=== PATIENT | male | born 1985 | race Caucasian/White ===

== ENCOUNTER 2018-01-30 16:17 | Inpatient (IN) | payer OTHER ==
[~2018-01-30] VITALS: Ht 172.7 cm; Wt 71.2 kg
[2018-01-30 16:21] VITALS: Ht 172.7 cm; Wt 71.2 kg
[2018-01-30 16:54] LABS: BASOPHIL % 0.3 % (0-2); PLATELET COUNT 167 x10^3mcL (130-400)
[2018-01-30 17:01] LABS: RED CELL DISTRIBUTION WIDTH 14.7 % (11.5-14.5)
[2018-01-30 17:23] LABS: T3 TOTAL 1.02 ng/mL
[2018-01-30 17:26] LABS: BILIRUBIN TOTAL 0.86 mg/dL (0.20-1.00); CALCIUM 8.5 mg/dL (8.5-10.1); CARBON DIOXIDE 21.6 mmol/L (21-32); TOTAL PROTEIN, SERUM 6.7 g/dL (6.4-8.2)
[2018-01-30 17:28] LABS: ALBUMIN 2.6 g/dL (3.4-5.0)
[2018-01-30 17:29] LABS: CREATININE SERUM 5.1 mg/dL (0.7-1.3); POTASSIUM SERUM 2.8 mmol/L (3.5-5.1)
[2018-01-30 17:51] LABS: FREE T4 1.47 ng/dL (0.76-1.46); T4(THYROXINE) 7.8 ug/dL (4.7-13.3)
[2018-01-30 17:57] LABS: AMPHETAMINE QUAL UR NONE DETECTED (See below)
[2018-01-30 20:27] VITALS: BP 192/132
[2018-01-30 22:42] VITALS: BP 192/132
[2018-01-31] VITALS (10 sets, daily range): BP systolic 125–167; BP diastolic 88–116
[2018-01-31 00:30] LABS: microscopic required? YES; urine erythrocyte 1+ (NEGATIVE)
[2018-01-31 06:58] LABS: BASOPHIL % 0.2 % (0-2); PLATELET COUNT 138 x10^3mcL (130-400)
[2018-01-31 07:00] LABS: RED CELL DISTRIBUTION WIDTH 14.8 % (11.5-14.5)
[2018-01-31 07:41] LABS: BILIRUBIN DIRECT 0.26 mg/dL (0.0-0.2); BILIRUBIN TOTAL 0.75 mg/dL (0.20-1.00); CALCIUM 8.4 mg/dL (8.5-10.1); CARBON DIOXIDE 22.6 mmol/L (21-32); MAGNESIUM 2.2 mg/dL (1.8-2.4); POTASSIUM SERUM 3.2 mmol/L (3.5-5.1); TOTAL PROTEIN, SERUM 6.2 g/dL (6.4-8.2)
[2018-01-31 07:45] LABS: ALBUMIN 2.3 g/dL (3.4-5.0); CREATININE SERUM 4.9 mg/dL (0.7-1.3)
[2018-01-31 10:30] LABS: CHOLESTEROL/HDL RATIO 3.7
[2018-02-01 05:28] VITALS: BP 123/90
[2018-02-01 05:29] LABS: BASOPHIL % 0.4 % (0-2); PLATELET COUNT 184 x10^3mcL (130-400)
[2018-02-01 05:36] LABS: RED CELL DISTRIBUTION WIDTH 14.9 % (11.5-14.5)
[2018-02-01 05:43] LABS: CALCIUM 8.1 mg/dL (8.5-10.1); MAGNESIUM 2.3 mg/dL (1.8-2.4); POTASSIUM SERUM 3.6 mmol/L (3.5-5.1)
[2018-02-01 05:46] LABS: CREATININE SERUM 4.7 mg/dL (0.7-1.3)
[2018-02-01 10:03] VITALS: BP 143/101
[2018-02-01 13:32] VITALS: BP 124/88
[2018-02-01 16:36] VITALS: BP 120/85
[2018-02-01 21:00] VITALS: BP 150/113
[2018-02-01 21:31] LABS: CREATININE UR 64.2 mg/dL
[2018-02-01 23:12] VITALS: BP 124/86
[2018-02-02 05:37] VITALS: BP 145/105
[2018-02-02 06:05] LABS: BASOPHIL % 0.9 % (0-2); PLATELET COUNT 265 x10^3mcL (130-400); RED CELL DISTRIBUTION WIDTH 13.9 % (11.5-14.5)
[2018-02-02 06:35] LABS: CALCIUM 8.5 mg/dL (8.5-10.1); CARBON DIOXIDE 23.8 mmol/L (21-32); POTASSIUM SERUM 3.4 mmol/L (3.5-5.1)
[2018-02-02 06:39] LABS: CREATININE SERUM 4.5 mg/dL (0.7-1.3)
[2018-02-02 06:48] VITALS: BP 143/97
[2018-02-02 08:21] VITALS: BP 123/84
[2018-02-02 13:06] VITALS: BP 141/97
[2018-02-02] MEDS ORDERED: NOR5 PO (15:37)
[2018-02-02] MEDS ORDERED: CAT0.1 PO (15:37)
[2018-02-02] MEDS ORDERED: APR10 PO (15:37)
[2018-02-02 15:46] VITALS: BP 141/97
[2018-02-02 16:14] VITALS: BP 137/98
[2018-02-03 15:00] LABS: ANTI-GLOMERULAR ANTIBODIES 3 units (0-20)
[2018-02-03 15:03] LABS: cnab c-anca <1:20 titer (Neg:<1:20); cnab p-anca <1:20 titer (Neg:<1:20)
[2018-02-04 07:11] LABS: COMPLEMENT C3 162 mg/dL (82-167); COMPLEMENT C4 33 mg/dL (14-44)
== END 2018-02-02 17:14 | disposition home or self-care (01) | DRG 280 ==
LOC: ED 16:17 → DU 18:47
PROVIDERS: Emergency Medicine; Internal Medicine; Internal Medicine Nephrology; Internal Medicine Pulmonary Disease
DX: I21.4 Non-ST elevation (NSTEMI) myocardial infarction (principal); J96.01 Acute respiratory failure with hypoxia; I50.33 Acute on chronic diastolic (congestive) heart failure; N17.9 Acute kidney failure, unspecified; I16.1 Hypertensive emergency; I42.9 Cardiomyopathy, unspecified; J81.1 Chronic pulmonary edema; I16.0 Hypertensive urgency; D64.9 Anemia, unspecified; I11.0 Hypertensive heart disease with heart failure; E87.6 Hypokalemia; Z83.3 Family history of diabetes mellitus
CPT/HCPCS: 36600; 83516; 83520; 83880; 84439; 86256; 94150; A9500; J0696; J1650; J1940; J2060; J2785; J3480; J3490; J7030; Q0092